=== PATIENT | female | born 2000 | race Caucasian/White ===

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

== ENCOUNTER 2019-07-08 18:32 | Emergency (ER) | payer BC ==
--- OUTSIDE RECORDS SUMMARY | 2019-07-08 18:40 | XMS REPORT | Continuity of Care Document ---
:2000 Author Organization [address] [place] [address] Address [address] [place] [address] Phone Care Team Providers Name Role combat engineer, CARE Unavailable Unavailable Allergies, Adverse Reactions, Alerts Substance Reaction Status Substance Type Unknown WARNIN allergy(ies) could not be collected because the type is not supported. Please contact [facility] practice for further details. Medications Medication Instructions Dosage Effective Dates Status Comments (start - stop) NORGEST/E ES TAKE 1 TABLET DAILY - Active TRIPHASIC PK 28 multivitamin tablet take 1 tablet by - Active oral route every day with food ALLERGY (unknown NEEDED Not Available - Active strength) Problems Condition Effective Dates (start - stop) Clinical Status Laceration of right lower leg, subsequent encounter Encounter for removal of sutures Encntr for routine child health exam w/o abnormal findings BMI 22.0-22.9, adult BMI pediatric, 5th percentile to less - than 85% for age Encntr for routine child health exam w/o abnormal findings Pediatric body mass index (BMI) of 5th percentile to less than 85th percentile for age Irregular menses Pituitary microadenoma Pituitary abnormality Elevated prolactin level Abnormal results of thyroid function - studies Abnormal thyroid function test Irregular menses Encntr for routine child health exam w/o abnormal findings Pediatric body mass index (BMI) of 5th percentile to less than 85th percentile for age Visit for suture removal Breast tenderness in female Encounter for other contraceptive management CVA tenderness Check, routine, infant/child Low back pain Head injury Check, routine, infant/child Right foot sprain Pharyngitis, Acute Discomfort, visual Acute Tonsillitis, acute Chronic Procedures Procedure Date Procedure Unknown Results Test Name Date and Time Measure Units Reference Range Abnormal Flag Status Comments Unknown Encounters Encounter Practice Location Reason(s) Diagnoses Date Provider Providers Description For Visit Copied on Encounter 0001 - [facility] Ned-0 ASSOCIATE DIRECTOR CAREER SERVICES Intentio, Primary CARE. . 57 Care 0 [place], [address], tel: [phone] [address] [place] [address] Laceration of right Feb-0 Picanova, Primary lower leg, LM 33-57 Care subsequent 9 JANETTE [place] encounterEncounter . [address], for removal of Benjieestiven [place], [place], [place], [address], [place], tel: [phone] tel: [phone] [address] [place] [address] Aug-0 MASARECH Intentio, Primary KAMILAH. -57 Care 8 15 Y[address] Mirna [place], [place], [place], [address], [place], tel: [phone] tel: [phone] [address] [place] [address] Encntr for routine Joshua-2 Picanova, Primary child health exam 0-201 57 Care w/o abnormal 8 JANETTE [place] findingsBMI . 15 Machias, 22.0-22.9, adultBMI [facility] pediatric, 5th [place], [place], percentile to less [place], [address], [place] than 85% for age [place], tel: [phone] tel: [phone] [address] [place] [address] Encntr for routine Nov-0 PENDELL Intentio, Primary child health exam 2-201 HUMPHREY 57 Care w/o abnormal 7 KEVEN. 15 Yao Mirna findingsPediatric [facility], body mass index [facility] (BMI) of 5th [place], [place], percentile to less [place], [address], [place] than 85th percentile [place], tel: for age [phone] tel: [phone] 0001 - S Irregular menses Joshua- PENDELL [employer], Primary [facility] -57 Care 7 KEVEN. 15 [facility], [place], [place], [place], [address], [facility], tel: [phone] tel: [phone] 0001 - S Pituitary May-0 SAJ[employer] Inc, Primary microadenoma CUDDY. Care 7 [facility] 15 [facility], [place], [place], [address], [place] [address]. tel: tel: [phone] 0001 - Lab Drop Pituitary Apr-2 [employer], - [facility] abnormalityElevated [facility] prolactin level 7 KEVEN. 15 [facility], [place], [place], [place], [address], [place], tel: [phone] tel: [phone] 0001 - S Abnormal results of Apr-2 [employer], Primary thyroid function - [facility] Care studies 7 KEVEN. 15 [facility], [place], [place], [place], [address], [place], tel: [phone] tel: [phone] 0001 - Lab Drop Abnormal thyroid Apr-1 [employer], - [facility] function test - [facility] 7 KEVEN. 15 [facility], [place], [place], [place], [address], [place], tel: [phone] tel: [phone] 0001 - S Irregular menses Apr-1 PENDELL [employer], Primary [facility] 3357 Care 7 KEVEN. 15 [facility], [place], [place], [place], [address], [place], tel: [phone] tel: [phone] 0001 [facility] Encntr for routine Dining Secretary, Primary child health exam CUDDY. Care w/o abnormal 6 [facility] 15 Yao [place] findingsPediatric [facility], body mass index [facility] (BMI) of 5th [place], [place], [place], [address], [place] than 85th percentile [address]. tel: for age tel: [phone] 0001 - [facility] Visit for suture Joshua- Wacai, Primary removal KAMILAH. 3357 Care 6 15 Yao [place] [facility], [place], [place], [place], [address], [facility], tel: [phone] tel: [phone] 0001 - [facility] Breast tenderness in [employer], Primary femaleEncounter for [facility] 57 Care other contraceptive 6 KEVEN. 15 Yao [place] [facility], [place], [place], [place], [address], [place], tel: [phone] tel: [phone] 0001 - [facility] CVA tenderness [employer], Primary [facility] -57 Care 6 KEVEN. 15 Yao [place] [facility], [place], [place], [place], [address], [facility], tel: [phone] tel: [phone] 0001 - [facility] Check, routine, Wacai, Primary /childLow back [place]. 3357 Care pain 5 15 Yao [place] [facility], [place], [place], [place], [address], [facility], tel: [phone] tel: [phone] 0001 - [facility] Head injury Wacai, Primary 3 [place]. 33-57 Care 5 15 Yao [place] [facility], [place], [place], [place], [address], [facility], tel: [phone] tel: [phone] 0001 - S Check, routine, Nov- [facility] Referring S Inc, Primary /child 8-201 KAMILAH. Provider: 33-57 Care 4 [address]AMIL[address] [place] [address], [place], [place], [facility] [address], [facility], tel: [phone]. [place], [phone]. [phone] tel: tel: [phone] 0001 - S Right foot sprain Sep-2 S Inc, Primary 0 Care 3 [place], [address], [place] tel: [phone] 0001 - S Pharyngitis, Acute Feb-2 S Inc, Primary 8 Care [address] [place], [address], [place] tel: [phone] 0001 - S Discomfort, visual Dec-0 PENDELL S Inc, Primary 8200 [facility] Care 9 KEVEN. Camron Samayoa [place], [place], [place], [address], [facility], tel: [phone] tel: [phone] 0001 - S Tonsillitis, acute Shawn-0 PENDELL Referring S Inc, Primary 8200 [facility] Provider: Care 9 KEVEN. 15 KEVEN [place] [facility], [address] [place] [address], [place], [place], [facility], [address], Mirna GARCIA, tel: [phone]. [place], [phone]. [phone] tel: tel: [phone] 0001 - S Oct-0 PENDELL S Inc, Primary 1-200 [facility] Care 8 KEVEN. Camron [place], [place], [place], [address], [facility], tel: [phone] tel: [phone] Family History Family Member Diagnosis Age At Onset Unknown Immunizations Vaccine Date Status Comments Hep A (ped/adol, 2 dose) administered Source: New Immunization Record Gardasil 9 administered Source: New Immunization Record Gardasil 9 administered Source: New Immunization Record Meningococcal MCV4O administered Source: New Immunization Record Gardasil 9 administered Source: New Immunization Record Hep A (ped/adol, 2 dose) administered Source: New Immunization Record Varicella administered Source: School Record TDAP (Boostrix or Adacel) administered Source: School Record MMR administered Note: Abstracted -01/07/2008 ; Source: New Immunization Record DTaP administered Note: Abstracted -01/07/2008 ; Source: New Immunization Record polio, inactivated (IPV) administered Note: Abstracted 2007 ; Source: New Immunization Record varicella administered Note: Abstracted 01/07/2008 ; Source: New Immunization Record pneumo (under 5) (PCV) administered Note: Abstracted 01/07/2008 ; Source: New Immunization Record HIB administered Note: Abstracted 01/07/2008 ; Source: New Immunization Record MMR administered Note: Abstracted -01/07/2008 ; Source: New Immunization Record DTaP administered Note: Abstracted -01/07/2008 ; Source: New Immunization Record pneumo (under 5) (PCV) administered Note: Abstracted 01/07/2008 ; Source: New Immunization Record Comvax administered Note: Abstracted 01/07/2008 ; Source: New Immunization Record DTaP administered Note: Abstracted -01/07/2008 ; Source: New Immunization Record polio, inactivated (IPV) administered Note: Abstracted 2007 ; Source: New Immunization Record Comvax administered Note: Abstracted -01/07/2008 ; Source: New Immunization Record DTaP administered Note: Abstracted -01/07/2008 ; Source: New Immunization Record polio, inactivated (IPV) administered Note: Abstracted -2007 ; Source: New Immunization Record Comvax administered Note: Abstracted -01/07/2008 ; Source: New Immunization Record DTaP administered Note: Abstracted -01/07/2008 ; Source: New Immunization Record polio, inactivated (IPV) administered Note: Abstracted -2007 ; Source: New Immunization Record pneumo (under 5) (PCV) administered Note: Abstracted -01/07/2008 ; Source: New Immunization Record polio, inactivated (IPV) administered Note: Abstracted -2007 ; Source: New Immunization Record HIB administered Note: Abstracted -01/07/2008 ; Source: New Immunization Record hep B (ped/adol, 3 dose) administered Note: Abstracted -2007 ; Source: New Immunization Record DTaP administered Note: Abstracted -01/07/2008 ; Source: New Immunization Record Payers Payer name Insurance type Covered constitution party ID Authorization(s) [facility] Organiz Contrac UB or [address] [facility] [id number] [facility] [id number] [facility] [id number] Social History Type Description Quantity Date Captured Comments Unknown Vital Signs Date / Height Weight BMI Pulse Blood Temperature Respiratory Body Head BMI Time: Rate Pressure Rate Surface Circumference percentile Area Unknown Chief Complaint And Reason For Visit No information Reason For Referral Reason For Referral Unknown Plan Of Care Date Type Action Status Referral Referred To: ordered [place], [address] [phone] Ordered: Referrals: Endocrinology, Diabetes and Metabolism. DENYS DAVIS MD. Evaluate and treat Appointment date/timeframe: 09/13/2016 Referral Ordered: ordered MRI of Brain & Further Sequences with & w/o Contrast PITUITARY Referral Ordered: ordered U/S Abdomen complete Right especially kidney Referral Ordered: ordered Xray Spine Lumbar complete Referral Referred To: ordered [facility] Ordered: [facility]. Dental Assisting Instructor. Consult and treat. Date Type Problem Goal Intervention Status Start Date Unknown History Of Present Illness Encounter Date Complaint History Of Present Illness No information Functional Status Encounter Date Functional Assessment Cognitive Assessment Unknown Medications Administered Medication Instructions Dosage Effective Dates (start - stop) Status Comments Drug Treatment Unknown Instructions Date Instruction Additional Information Keep area clean and dry, let Related to Laceration of right lower steri-strips fall off on their own. leg, subsequent encounter Follow up if no improvement Healthy child![place] teeth twice a Related to Encntr for routine child day, visit the dentist at least health exam w/o abnormal findings yearly, limit screen time to less than an hour a day. Always wear a seatbelt when in a motor vehicle. Wear a helmet when riding a bike or skate board, ensure firearms are locked and out of childrens reach. Ensure firealarms work in home and change the battery at least every 6 months. Stay awake from tobacco products such as cigarettes and chewing tobacco.Have a good school year!Return for any issues, concerns or for your next annual physical. Age appropriate anticipatory guidance Related to Encntr for routine child discussed (15-21 years) health exam w/o abnormal findings Age appropriate diet discussed (- Related to Encntr for routine child years) health exam w/o abnormal findings Age appropriate safety discussed Related to Encntr for routine child (15-21 years) health exam w/o abnormal findings Oral Health Discussed (15-21 years) Related to Encntr for routine child health exam w/o abnormal findings Healthy child. Discussed Related to Encntr for routine child Anticipatory guidance. Immunizations health exam w/o abnormal findings reviewed and updated. Return in 1 year for annual physical. We will change to Ortho tricyclen , Related to Irregular menses the regular dose Not the low dose. Begin it the Saturday after the 1st day of your next cycle. When you return in November for your physical we will be rechecking your prolactin level as well as your thyroid level. You have had one spotting month out Related to Irregular menses of 12. We will be checking your thyroid and labs to make sure there isn't anything hormonal or metabolic causing this. Call back before 08/03 if you decide you would like to change to plain pwjjj-ekf-gashpa instead of the gsomi-otf-yjoojf LO.It's likely that this will right itself without the pill change. Continue current plan. Everything Related to Encntr for routine child looks good. Due for last HPV in 4 health exam w/o abnormal findings months. Follow up in 1 year or sooner with concerns. sutures removed with sterile Related to Visit for suture removal scissors; tolerated well We will begin oral contraceptives. Related to Encounter for other You need to take these at the same contraceptive management time everyday for them to be effective. You need to continue to use condoms. SInce you are having your menses now begin the pill this Saturday.return in 2 months for the next HPV vaccine This is hormone related . Related to Breast tenderness in female Try changing to aleeve twice a day Related to CVA tenderness instead of Ibuprofen. Continue to drink plenty of water. Use the heating pad if needed. May return to [facility] on Saturday if pain has subsided. check xrays Related to Low back pain f/u prn Related to Check, routine, infant/child return to full activity Related to Head injury f/u prn Related to Check, routine, /child
[2019-07-08 18:53] VITALS: BP 138/80
--- NOTE | 2019-07-08 19:05 | UC ---
Hand/Wrist HPI - HPI Summary HPI Summary: 18-year-old female comes in with a chief complaint of right hand pain. Just prior to arrival she accidentally shut her right hand in car door. Having quite a bit of pain and swelling primarily over the fourth and fifth metacarpals. Hurts to move the third fourth and fifth fingers. No loss of sensation or laceration. - History Of Current Complaint Chief Complaint: UCUpperExtremity Stated Complaint: RIGHT HAND INJURY Time Seen by Provider: 07/08/19 18:56 Hx Last Menstrual Period: 06/29/19 Pain Intensity: 6 - Allergies/Home Medications Allergies/Adverse Reactions: Allergies Allergy/AdvReac Type Severity Reaction Status Date / Time amoxicillin Allergy Unknown Verified 07/08/19 18:47 Reaction Details Penicillins Allergy Unknown Verified 07/08/19 18:47 Reaction Details Home Medications: Home Medications NK [No Home Medications Reported] 07/08/19 [History Confirmed 07/08/19] PMH/Surg Hx/FS Hx/Imm Hx Previously Healthy: Yes - Surgical History Surgical History: None - Family History Known Family History: Positive: Non-Contributory - Social History Alcohol Use: Occasionally Substance Use Type: None Smoking Status (MU): Never Smoked Tobacco - Immunization History Hx Tetanus, Diphtheria Vaccination: Yes - per mom up to date. Vaccination Up to Date: Yes Review of Systems All Other Systems Reviewed And Are Negative: Yes Constitutional: Positive: Negative Skin: Positive: Other - SEE HPI Eyes: Positive: Negative ENT: Positive: Negative Respiratory: Positive: Negative Cardiovascular: Positive: Negative Motor: Positive: Other - SEE HPI Neurovascular: Positive: Negative Musculoskeletal: Positive: Other: - SEE HPI Neurological/Mental Status: Positive: Negative Psychological: Positive: Negative Is Patient Immunocompromised?: No Physical Exam Triage Information Reviewed: Yes Appearance: Well-Appearing, Well-Nourished, Pain Distress - Mild with exam of the right hand Vital Signs: Initial Vital Signs Temp 99.3 F 07/08/19 18:47 Pulse 114 07/08/19 18:47 Resp 16 07/08/19 18:47 BP 138/80 07/08/19 18:47 Pulse Ox 100 07/08/19 18:47 Vital Signs Reviewed: Yes Eye Exam: Normal Eyes: Positive: Conjunctiva Clear Neck: Positive: Supple Respiratory: Positive: No respiratory distress - Remove Musculoskeletal: Positive: Other: - Patient has swelling and tenderness of the right hand primarily over the right fifth and fourth metacarpals. I can move the third fourth fifth fingers with passive range of motion the patient declines moving them on her own. Normal sensation. Right palpate the wrist it does increase the pain in the ulnar aspect of the hand. Neurological: Positive: Alert Psychological: Positive: Abnormal Response To Family Skin: Positive: Other - Swelling in the right hand over the fourth and fifth metacarpals. Normal capillary refill. Normal sensation. Hand/Wrist Course/Dx - Course Course Of Treatment: Discussed the x-rays with the patient. Patient has a fracture of the right distal fifth metacarpal that is angulated. Final radiologist reading is pending. I placed a ulnar gutter splint. Patient neurovascularly intact after placement of the splint. Patient take ibuprofen, ice the area and follow-up with orthopedics. - Differential Dx/Diagnosis Provider Diagnosis: Fracture of fifth metacarpal bone of right hand Discharge ED - Sign-Out/Discharge Documenting (check all that apply): Patient Departure All imaging exams completed and their final reports reviewed: No - Discharge Plan Condition: Stable Disposition: HOME Patient Education Materials: Boxer Fracture (ED) Referrals: Olga MATA,Jordi Bhandari [Primary Care Provider] - Frantz Sheikh MD [Medical Doctor] - Leanna Mendoza MD [Medical Doctor] - Additional Instructions: FOLLOW UP WITH ORTHOPEDICS. CALL TOMORROW MORNING TO ARRANGE FOLLOW UP. GET REEVALUATED IF NOT IMPROVING OR WORSE OR ANY QUESTIONS OR CONCERNS. - Billing Disposition and Condition Condition: STABLE Disposition: Home
--- NOTE | 2019-07-09 12:05 | UC ---
- Progress Note Progress Note: Reviewed radiology report. No change from wet reading/ Patient has ulnar gutter splint and referral to orthopedics. Patient Name: TONY SEVERINO Medical Record#: [id number] Ordering Physician: Sage Malone MD Acct.#: [id number] : 2000 Age: 18 Sex: F Location: [facility] Exam Date: 07/08/191855 ADM Status: [facility] ER Order Information: HAND - RIGHT MINIMUM 3 VIEWS Accession Number: [id number] CPT: 70428 INDICATION: Fifth metacarpal RIGHT hand pain following crush injury. COMPARISON: No relevant prior exams available on the [facility] PACS for comparison. TECHNIQUE: AP, lateral, and oblique views RIGHT hand. REPORT: #. Normal articular alignment. #. Preserved joint spaces. Negative for arthropathic change. #. Distal metaphyseal fracture fifth metacarpal with approximate 45 degrees apex dorsal angulation and overlying soft tissue swelling. Negative for additional fracture. IMPRESSION: #. Distal metaphyseal fracture fifth metacarpal with approximate 45 degrees apex dorsal angulation and overlying soft tissue swelling. R0 Preliminary Imaging Read R0 <Electronically signed by Sam Vivar MD in OV> 07/09/19742 Dictated By: Sam Viavr MD Dictated Date/Time: 07/09/19740 Transcribed Date/Time: 07/09/19740 Copy to: CC:Jordi Espinoza MD; Sage Malone MD Imaging - [facility] - [place] [facility] [place] [facility] [address] [place] [address] ph ([phone]) ph ([phone]) ph ([phone]) This report is only to be considered final once signed by the Provider(s) as displayed in the "<Electronically Signed by >" field (s). Absence of a signature indicates the report is in a draft status and still needs to be finalized. In the event this document was created by someone other than the signing Provider, the individual initiating the document will be listed in the "Entered by:" or "Dictated by:" selby. 1 of 1 Course/Dx - Diagnoses Provider Diagnoses: Fracture of fifth metacarpal bone of right hand Discharge ED - Sign-Out/Discharge Documenting (check all that apply): Post-Discharge Follow Up All imaging exams completed and their final reports reviewed: Yes - Discharge Plan Condition: Stable Disposition: HOME Patient Education Materials: Boxer Fracture (ED) Referrals: Frantz Sheikh MD [Medical Doctor] - Olga MATA,Jordi Bhandari [Primary Care Provider] - Leanna Mendoza MD [Medical Doctor] - Additional Instructions: FOLLOW UP WITH ORTHOPEDICS. CALL TOMORROW MORNING TO ARRANGE FOLLOW UP. GET REEVALUATED IF NOT IMPROVING OR WORSE OR ANY QUESTIONS OR CONCERNS. - Billing Disposition and Condition Condition: STABLE Disposition: Home
== END 2019-07-08 19:29 | disposition home or self-care (01) ==
LOC: UCCORT 18:32
DX: S62.316A Displaced fracture of base of fifth metacarpal bone, right hand, initial encounter for closed fracture (principal); W23.0XXA Caught, crushed, jammed, or pinched between moving objects, initial encounter; Y92.810 Car as the place of occurrence of the external cause; Z88.0 Allergy status to penicillin
CPT/HCPCS: 99211; G0463